=== PATIENT | male | born 1970 | race Caucasian/White ===

== ENCOUNTER 2018-11-30 13:27 | Inpatient (IN) | payer BC ==
[2018-11-30] MEDS ORDERED: HYDROCORTISONE SUC 100 MG INJ ONE (13:47)
[2018-11-30] MEDS ORDERED: NA CHLORIDE 0.9% 1,000 ML ONE ×3 (13:48→15:43)
[2018-11-30] MEDS ORDERED: FAMOTIDINE 20 MG/2 ML VIAL IV ONE (13:48)
[2018-11-30] MEDS ORDERED: ONDANSETRON 4 MG/2 ML VIAL ONE ×2 (13:48→14:20)
[2018-11-30 14:34] LABS: Absolute Lymphocytes (CBC) 3.4 K/uL (0.7-4.9); Basophils % 0.2 % (0-1.3); Hematocrit 44.5 % (39.6-49.0); Lymphocytes % 27.7 % (15.3-44.8); MPV 8.7 fL (7.6-11.3); RBC Red Blood Cell Count 5.08 M/uL (4.33-5.43)
[2018-11-30] MEDS ORDERED: PROMETHAZINE 25 MG/ML VIAL ONE ×2 (14:46→16:42)
[2018-11-30 14:48] LABS: Protime INR 1.31
[2018-11-30 14:54] LABS: ALT/SGPT 27 U/L (12-78); AST/SGOT 21 U/L (15-37); Albumin 3.9 g/dL (3.4-5.0); Alkaline Phosphatase 61 U/L (45-117); BUN Blood Urea Nitrogen 21 mg/dL (7-18); Bicarbonate 22 mmol/L (21-32); Bilirubin Direct 0.3 mg/dL (0-0.2); Bilirubin Total 1.1 mg/dL (0.2-1.0); Glucose Level 132 mg/dL (74-106); Lipase 73 U/L (73-393); Magnesium 2.3 mg/dL (1.8-2.4); NT PRO-BNP 10 pg/mL (<125); Protein, Total 8.2 g/dL (6.4-8.2); Sodium Level 140 mmol/L (136-145); Troponin (Emerg Dept Use Only) < 0.02 ng/mL (0.0-0.045)
[2018-11-30 14:55] LABS: Potassium 2.8 mmol/L (3.5-5.1)
--- NOTE | 2018-11-30 15:06 | ER ---
Nurse's Notes [facility] Name: Raúl Marcos Age: 48 yrs Sex: Male : 1970 Arrival Date: 11/30/2018 Time: 13:31 Bed 5 Private MD: Diagnosis: Vomiting;Weakness;Hypokalemia-HYPOPHOSPHTEMIA;Volume depletion;Abdominal tenderness Presentation: 11/30 13:33 Presenting complaint: Patient states: I have had fever for 2 days. Nausea and vomiting la1 for 24 hours. CLL patient. Transition of care: patient was not received from another setting of care. Onset of symptoms was November 30, 2018. Risk Assessment: Do you want to hurt yourself or someone else? Patient reports no desire to harm self or others. Initial Sepsis Screen: Does the patient meet any 2 criteria? No. Patient's initial sepsis screen is negative. Does the patient have a suspected source of infection? No. Patient's initial sepsis screen is negative. Care prior to arrival: None. 13:33 Method Of Arrival: Wheelchair la1 13:33 Acuity: OPAL 2 la1 Historical: - Allergies: 13:34 No Known Allergies; la1 - PMHx: 13:34 CLL; Hypertension; la1 - Immunization history:: Adult Immunizations up to date. - Social history:: Smoking status: Patient/guardian denies using tobacco. - Ebola Screening: : No symptoms or risks identified at this time. - Family history:: not pertinent. Screenin:00 Abuse screen: Denies threats or abuse. Denies injuries from another. Nutritional hb screening: No deficits noted. Tuberculosis screening: No symptoms or risk factors identified. Fall Risk None identified. Assessment: 14:00 General: Appears uncomfortable, ill, well groomed, well developed, well nourished, sg Behavior is cooperative, appropriate for age. Pain: Denies pain. Neuro: Level of Consciousness is awake, alert, obeys commands, Oriented to person, place, time, Reports weakness. Cardiovascular: Patient's skin is warm and dry. Chest pain is denied. Respiratory: Airway is patent Respiratory effort is even, unlabored, Respiratory pattern is regular, symmetrical. GI: Abdomen is round non-distended. : No signs and/or symptoms were reported regarding the genitourinary system. EENT: No signs and/or symptoms were reported regarding the EENT system. Derm: Skin is intact, is healthy with good turgor, Skin is clammy, diaphoretic, Skin is pale, Skin temperature is cool. Musculoskeletal: Circulation, motion, and sensation intact. Range of motion: intact in all extremities, Swelling absent. 14:48 Reassessment: Pt dry heaving. Dr. Tomas notified, Phenergan administered as ordered. hb Vital Signs: 13:34 BP 161 / 118; Pulse 75; Resp 16; Temp 98.0; Pulse Ox 100% on R/A; Weight 117.93 kg; la1 Height 6 ft. 6 in. (198.12 cm); Pain 5/10; 14:45 BP 157 / 81; Pulse 64; Resp 15; Pulse Ox 99% on R/A; hb 17:27 BP 152 / 80; Pulse 75; Resp 17; Pulse Ox 100% on R/A; sg 13:34 Body Mass Index 30.05 (117.93 kg, 198.12 cm) la1 ED Course: 13:31 Patient arrived in ED. mr 13:33 Triage completed. la1 13:34 Arm band placed on left wrist. la1 13:35 Luis Antonio Tomas MD is Attending Physician. belinda 13:44 Michael Sesay RN is Primary Nurse. sg 13:48 Radiology exam delayed due to lab results not completed at this time. (BUN/Creatinine). mw3 14:00 No provider procedures requiring assistance completed. Patient did not have IV access sg during this emergency room visit. 14:02 XRAY Chest (1 view) In Process Unspecified. EDMS 14:10 Patient has correct armband on for positive identification. Placed in gown. Bed in low hb position. Call light in reach. Side rails up X 1. 15:05 Ree Kenny MD is Hospitalizing Provider. belinda 15:32 CT Head Brain wo Cont In Process Unspecified. EDMS 15:32 CT Aorta for Dissection In Process Unspecified. EDMS 17:26 Awaiting: IV NS BOLUS X3 LITERS to infuse prior to drawing the repeat lactate, then pt sg may go upstairs to room 404. 18:24 Repeat lab(s) drawn. by dc, sent to lab. la1 Administered Medications: Discontinued: NS 0.9% 1000 ml IV at 125 ml/hr continuous 13:50 Drug: NS 0.9% 1000 ml Route: IV; Rate: 1 bolus; Site: left forearm; sg 15:00 Follow up: IV Status: Completed infusion; IV Intake: 1000ml sg 13:50 Drug: Solu-CORTEF 100 mg Route: IVP; Site: left forearm; sg 14:30 Follow up: Response: No adverse reaction sg 13:58 Drug: Pepcid 20 mg Route: IVP; Site: left forearm; sg 14:22 Follow up: Response: No adverse reaction sg 13:58 Drug: NS 0.9% 1000 ml Route: IV; Rate: 125 ml/hr; Site: left forearm; sg 13:58 Drug: Zofran 4 mg Route: IVP; Site: left forearm; sg 14:15 Follow up: Response: No adverse reaction hb 14:49 Follow up: Response: No adverse reaction hb 14:22 Drug: Zofran 4 mg Route: IVP; Site: left forearm; hb 15:00 Follow up: Response: No adverse reaction sg 14:49 Drug: NS 0.9% 1000 ml Route: IV; Rate: 1 bolus; Site: left forearm; hb 16:44 Follow up: Response: No adverse reaction; IV Status: Completed infusion; IV Intake: sg 1000ml 14:49 Drug: Phenergan 12.5 mg Route: IVP; Site: left forearm; hb 15:23 Follow up: Response: No adverse reaction sg 15:10 Drug: Cefepime 2 grams Route: IVPB; Rate: 200 ml/hr; Infused Over: 30 mins; Site: left sg forearm; 15:33 Drug: NS 0.9% with KCl 20 mEq/L 1000 ml Route: IV; Rate: 125 ml/hr; Site: left jugular; hb 15:45 Drug: Potassium Chloride 20 mEq Route: IV; Rate: per protocol; Site: left jugular; hb 18:01 Follow up: IV Status: Completed infusion; IV Intake: 100ml rv 16:43 Drug: NS 0.9% 1000 ml Route: IV; Rate: 1 bolus; Site: right forearm; sg 18:00 Follow up: IV Status: Completed infusion; IV Intake: 1000ml rv 16:43 Drug: Phenergan 12.5 mg Route: IVP; Site: right forearm; sg 18:01 Follow up: Response: Nausea unchanged rv 17:47 Drug: Reglan 10 mg Route: IVP; Site: left forearm; rv 18:00 Drug: Potassium Phosphate 15 mmol Route: IV; Rate: per protocol; Site: left jugular; rv Intake: 15:00 IV: 1000ml; Total: 1000ml. sg 16:44 IV: 1000ml; Total: 2000ml. sg 18:00 IV: 1000ml; Total: 3000ml. rv 18:01 IV: 100ml; Total: 3100ml. rv Outcome: 15:06 Decision to Hospitalize by Provider. belinda 18:32 Patient left the ED. la1 Signatures: Dispatcher [employer] EDMS Michael Sesay RN RN sg Anderson, Corey, MD MD cha Rivera, Mary mr Julian, VIPIN Zapien RN la1 Mary Hilton RN RN hb Willis, Michelle mw3 Armond Perdue RN RN rv
--- NOTE | 2018-11-30 15:07 | EDPHYS ---
Physician Documentation [facility] Name: Raúl Marcos Age: 48 yrs Sex: Male : 1970 Arrival Date: 11/30/2018 Time: 13:31 Bed 5 Private MD: ED Physician Luis Antonio Tomas HPI: 11/30 13:44 This 48 yrs old Male presents to ER via Wheelchair with complaints of belinda Nausea/Vomiting, Weakness. 13:44 The patient presents to the emergency department with nausea, vomiting, that is belinda continuous. Onset: The symptoms/episode began/occurred 3 day(s) ago. Possible causes: unknown. The symptoms are aggravated by nothing. The symptoms are alleviated by nothing. Associated signs and symptoms: The patient has no apparent associated signs or symptoms. Severity of symptoms: At their worst the symptoms were mild moderate in the emergency department the symptoms are unchanged. The patient has not experienced similar symptoms in the past. Historical: - Allergies: 13:34 No Known Allergies; la1 - PMHx: 13:34 CLL; Hypertension; la1 - Immunization history:: Adult Immunizations up to date. - Social history:: Smoking status: Patient/guardian denies using tobacco. - Ebola Screening: : No symptoms or risks identified at this time. - Family history:: not pertinent. ROS: 13:44 Eyes: Negative for injury, pain, redness, and discharge, ENT: Negative for injury, belinda pain, and discharge, Neck: Negative for injury, pain, and swelling, Cardiovascular: Negative for chest pain, palpitations, and edema, Respiratory: Negative for shortness of breath, cough, wheezing, and pleuritic chest pain, Back: Negative for injury and pain, : Negative for injury, bleeding, discharge, and swelling, Neuro: Negative for headache, weakness, numbness, tingling, and seizure, Psych: Negative for depression, anxiety, suicide ideation, homicidal ideation, and hallucinations, Allergy/Immunology: Negative for hives, rash, and allergies, Endocrine: Negative for neck swelling, polydipsia, polyuria, polyphagia, and marked weight changes, Hematologic/Lymphatic: Negative for swollen nodes, abnormal bleeding, and unusual bruising. 13:44 Constitutional: Positive for fever, poor PO intake. 13:44 Abdomen/GI: Positive for abdominal pain, nausea and vomiting. 13:44 Skin: Positive for diaphoresis, pallor, diffusely. Exam: 13:44 Constitutional: This is a well developed, well nourished patient who is awake, alert, belinda and in no acute distress. Head/Face: Normocephalic, atraumatic. Eyes: Pupils equal round and reactive to light, extra-ocular motions intact. Lids and lashes normal. Conjunctiva and sclera are non-icteric and not injected. Cornea within normal limits. Periorbital areas with no swelling, redness, or edema. ENT: Nares patent. No nasal discharge, no septal abnormalities noted. Tympanic membranes are normal and external auditory canals are clear. Oropharynx with no redness, swelling, or masses, exudates, or evidence of obstruction, uvula midline. Mucous membranes moist. Neck: Trachea midline, no thyromegaly or masses palpated, and no cervical lymphadenopathy. Supple, full range of motion without nuchal rigidity, or vertebral point tenderness. No Meningismus. Chest/axilla: Normal chest wall appearance and motion. Nontender with no deformity. No lesions are appreciated. Cardiovascular: Regular rate and rhythm with a normal S1 and S2. No gallops, murmurs, or rubs. Normal PMI, no JVD. No pulse deficits. Respiratory: Lungs have equal breath sounds bilaterally, clear to auscultation and percussion. No rales, rhonchi or wheezes noted. No increased work of breathing, no retractions or nasal flaring. Abdomen/GI: Soft, non-tender, with normal bowel sounds. No distension or tympany. No guarding or rebound. No evidence of tenderness throughout. Back: No spinal tenderness. No costovertebral tenderness. Full range of motion. Male : Normal genitalia with no discharge or lesions. MS/ Extremity: Pulses equal, no cyanosis. Neurovascular intact. Full, normal range of motion. Neuro: Awake and alert, GCS 15, oriented to person, place, time, and situation. Cranial nerves II-XII grossly intact. Motor strength 5/5 in all extremities. Sensory grossly intact. Cerebellar exam normal. Normal gait. Psych: Awake, alert, with orientation to person, place and time. Behavior, mood, and affect are within normal limits. 13:44 Skin: Appearance: Color: pale, Temperature: cool, Moisture: diaphoretic, petechiae, not noted, ecchymosis, not noted, flushing, not noted, diaphoresis is noted, swelling, is not appreciated. Vital Signs: 13:34 BP 161 / 118; Pulse 75; Resp 16; Temp 98.0; Pulse Ox 100% on R/A; Weight 117.93 kg; la1 Height 6 ft. 6 in. (198.12 cm); Pain 5/10; 14:45 BP 157 / 81; Pulse 64; Resp 15; Pulse Ox 99% on R/A; hb 17:27 BP 152 / 80; Pulse 75; Resp 17; Pulse Ox 100% on R/A; sg 13:34 Body Mass Index 30.05 (117.93 kg, 198.12 cm) la1 Procedures: 14:26 Peripheral line: by aseptic technique a peripheral line was placed in the left external belinda jugular vein. MDM: 13:35 Patient medically screened. [facility] 13:47 Data reviewed: vital signs, nurses notes, lab test result(s), EKG, radiologic studies, [facility] CT scan, plain films. 11/30 13:44 Order name: Basic Metabolic Panel; Complete Time: 15:01 [facility] 11/30 13:44 Order name: CBC with Diff; Complete Time: 15:01 [facility] 11/30 13:44 Order name: LFT's; Complete Time: 15:01 [facility] 11/30 13:44 Order name: Magnesium; Complete Time: 15:01 [facility] 11/30 13:44 Order name: NT PRO-BNP; Complete Time: 15:01 [facility] 11/30 13:44 Order name: PT-INR; Complete Time: 15:01 [facility] 11/30 13:44 Order name: Troponin (emerg Dept Use Only); Complete Time: 15:01 [facility] 11/30 13:44 Order name: Lipase; Complete Time: 15:01 [facility] 11/30 13:44 Order name: Blood Culture Adult (2) [facility] 11/30 13:44 Order name: Procalcitonin; Complete Time: 15:04 [facility] 11/30 13:44 Order name: Lactate; Complete Time: 15:01 [facility] 11/30 13:44 Order name: Urine Culture [facility] 11/30 15:02 Order name: Phosphorus; Complete Time: 16:08 [facility] 11/30 15:30 Order name: Urine Drug Screen EDMN 11/30 13:44 Order name: XRAY Chest (1 view); Complete Time: 16:08 [facility] 11/30 13:44 Order name: CT Head Brain wo Cont; Complete Time: 16:08 [facility] 11/30 13:44 Order name: CT Aorta for Dissection; Complete Time: 16:08 [facility] 11/30 18:14 Order name: Lactate 11/30 13:44 Order name: EKG; Complete Time: 13:45 [facility] 11/30 13:44 Order name: Cardiac monitoring; Complete Time: 13:59 [facility] 11/30 13:44 Order name: EKG - Nurse/Tech; Complete Time: 13:59 [facility] 11/30 13:44 Order name: IV Saline Lock; Complete Time: 14:00 [facility] 11/30 13:44 Order name: Labs collected and sent; Complete Time: 14:00 [facility] 11/30 13:44 Order name: O2 Per Protocol; Complete Time: 14:00 [facility] 11/30 13:44 Order name: O2 Sat Monitoring; Complete Time: 14:00 [facility] Administered Medications: Discontinued: NS 0.9% 1000 ml IV at 125 ml/hr continuous 13:50 Drug: NS 0.9% 1000 ml Route: IV; Rate: 1 bolus; Site: left forearm; sg 15:00 Follow up: IV Status: Completed infusion; IV Intake: 1000ml sg 13:50 Drug: Solu-CORTEF 100 mg Route: IVP; Site: left forearm; sg 14:30 Follow up: Response: No adverse reaction sg 13:58 Drug: Pepcid 20 mg Route: IVP; Site: left forearm; sg 14:22 Follow up: Response: No adverse reaction sg 13:58 Drug: NS 0.9% 1000 ml Route: IV; Rate: 125 ml/hr; Site: left forearm; sg 13:58 Drug: Zofran 4 mg Route: IVP; Site: left forearm; sg 14:15 Follow up: Response: No adverse reaction hb 14:49 Follow up: Response: No adverse reaction hb 14:22 Drug: Zofran 4 mg Route: IVP; Site: left forearm; hb 15:00 Follow up: Response: No adverse reaction sg 14:49 Drug: NS 0.9% 1000 ml Route: IV; Rate: 1 bolus; Site: left forearm; hb 16:44 Follow up: Response: No adverse reaction; IV Status: Completed infusion; IV Intake: sg 1000ml 14:49 Drug: Phenergan 12.5 mg Route: IVP; Site: left forearm; hb 15:23 Follow up: Response: No adverse reaction sg 15:10 Drug: Cefepime 2 grams Route: IVPB; Rate: 200 ml/hr; Infused Over: 30 mins; Site: left sg forearm; 15:33 Drug: NS 0.9% with KCl 20 mEq/L 1000 ml Route: IV; Rate: 125 ml/hr; Site: left jugular; hb 15:45 Drug: Potassium Chloride 20 mEq Route: IV; Rate: per protocol; Site: left jugular; hb 18:01 Follow up: IV Status: Completed infusion; IV Intake: 100ml rv 16:43 Drug: NS 0.9% 1000 ml Route: IV; Rate: 1 bolus; Site: right forearm; sg 18:00 Follow up: IV Status: Completed infusion; IV Intake: 1000ml rv 16:43 Drug: Phenergan 12.5 mg Route: IVP; Site: right forearm; sg 18:01 Follow up: Response: Nausea unchanged rv 17:47 Drug: Reglan 10 mg Route: IVP; Site: left forearm; rv 18:00 Drug: Potassium Phosphate 15 mmol Route: IV; Rate: per protocol; Site: left jugular; rv Disposition: 11/30/18 15:06 Hospitalization ordered by Ree Kenny for Inpatient Admission. Preliminary diagnosis are Vomiting, Weakness, Hypokalemia - HYPOPHOSPHTEMIA, Volume depletion, Abdominal tenderness. - Bed requested for Telemetry/MedSurg (Inpatient). - Status is Inpatient Admission. la1 - Condition is Fair. - Problem is new. - Symptoms have improved. UTI on Admission? No Signatures: Dispatcher [employer] EDMN Sameera Diamond RN RN dw Gay, Steven, RN RN Luis Antonio Rich MD MD cha Calderon, Audri RN RN aa5 Curry Jordan RN RN la1 Mary Hilton RN RN Armond Rizzo RN RN rv Corrections: (The following items were deleted from the chart) 16:10 15:06 Hospitalization Ordered by Ree Kenny MD for Inpatient Admission. Preliminary belinda diagnosis is Vomiting; Weakness; Hypokalemia; Volume depletion; Abdominal tenderness. Bed requested for Telemetry/MedSurg (Inpatient). Status is Inpatient Admission. Condition is Fair. Problem is new. Symptoms have improved. UTI on Admission? No. belinda 16:34 16:10 11/30/2018 15:06 Hospitalization Ordered by Ree Kenny MD for Inpatient dw Admission. Preliminary diagnosis is Vomiting; Weakness; Hypokalemia - HYPOPHOSPHTEMIA; Volume depletion; Abdominal tenderness. Bed requested for Telemetry/MedSurg (Inpatient). Status is Inpatient Admission. Condition is Fair. Problem is new. Symptoms have improved. UTI on Admission? No. belinda 18:32 16:34 11/30/2018 15:06 Hospitalization Ordered by Ree Kenny MD for Inpatient la1 Admission. Preliminary diagnosis is Vomiting; Weakness; Hypokalemia - HYPOPHOSPHTEMIA; Volume depletion; Abdominal tenderness. Bed requested for Telemetry/MedSurg (Inpatient). Status is Inpatient Admission. Condition is Fair. Problem is new. Symptoms have improved. UTI on Admission? No. dw
--- NOTE | 2018-11-30 15:42 | RAD REPORT ---
EXAM DESCRIPTION: CT - Head Brain Wo Cont - 11/30/2018 3:31 pm CLINICAL HISTORY: Dizziness COMPARISON: None. TECHNIQUE: Computed axial tomography of the head was obtained. IV contrast was not requested. All CT scans are performed using dose optimization technique as appropriate and may include automated exposure control or mA/KV adjustment according to patient size. FINDINGS: An intracranial bleed is not seen . The ventricles are normal in caliber. No extra-axial fluid collection is noted. Fluid within the sinuses/ mastoids is not seen. IMPRESSION: No acute intracranial abnormality is seen. If patient's symptoms persist MRI of the bra in would be recommended.
[2018-11-30] MEDS ORDERED: KCL 20 MEQ/100 mL IVPB 20 MEQ/100 ML BAG IV ONE (15:43)
[2018-11-30] MEDS ORDERED: NS KCL 20MEQ 1,000 ML IV ONE (15:43)
--- NOTE | 2018-11-30 15:58 | RAD REPORT ---
EXAM DESCRIPTION: CT - Angio Aorta For Dissection - 11/30/2018 3:31 pm CLINICAL HISTORY: . Cough and abdominal pain with vomiting COMPARISON: None TECHNIQUE: Computed tomography angiography of the chest, abdomen pelvis were obtained. 100 cc Isovue 370 was administered intravenously. Coronal and sagittal reconstruction were performed. The evaluati on of bowel limited as oral contrast was not administered MIP 3D reconstruction was performed All CT scans are performed using dose optimization technique as appropriate and may include automated exposure control or mA/KV adjustment according to patient size. FINDINGS: An aortic dissection is not seen. An aortic aneurysm is not displayed. 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 SMA and CATARINA are patent . A lung consolidation is not present. A pericardial effusion is not seen. A pleural effusion is not n oted. Fatty liver Spleen, pancreas adrenals and kidneys demonstrate no significant abnormality. The appendix is normal. There no evidence diverticulitis. No ascites is noted. Small hiatal hernia. Osteophytes and disc bulge L5-S1 abut the left S1 nerve root Small to moderate left inguinal hernia contains fat IMPRESSION: Negative for an aortic dissection.
--- NOTE | 2018-11-30 15:58 | RAD REPORT ---
EXAM DESCRIPTION: Dominick Single View11/30/2018 2:03 pm CLINICAL HISTORY: cough COMPARISON: none FINDINGS: The lungs appear clear of acute infiltrate. The heart is normal size IMPRESSION: No acute abnormalities displayed
[2018-11-30] MEDS ORDERED: POTASSIUM PHOS IN 0.9 % NACL 15 MMOL/250 ML BAG IV ONE (16:45)
--- NOTE | 2018-11-30 17:41 | P.HP ---
Certification for Inpatient Patient admitted to: Inpatient Practitioner: I am a practitioner with admitting privileges, knowledge of patient current condition, hospital course, and medical plan of care. Services: Services provided to patient in accordance with Admission requirements found in Title 42 Section 412.3 of the Code of Federal Regulations Patient History Date of Service: 11/30/18 Reason for admission: Nausea/vomiting History of Present Illness: This is a 48-year-old male with CLL and hypertension admitted for intractable nausea and vomiting that has been progressively worsening for the past 3 days. Per patient, he had fever and body aches then resolved 2 days prior to the nausea and vomiting starting 3 days ago. Describes his vomitus is nonbilious and nonbloody. This nausea and vomiting has been progressively worsening, associated with a burning feeling in his chest and stomach. This morning for appropriate 4 hr symptoms were worse and he was vomiting every 15 min therefore he came to the emergency room. He states that he has not eaten anything in 3-4 days. Reports normal bowel movement, last 1 this morning. Blood pressure was 161/118, heart rate of 75, respirations of 16, afebrile at 98 and satting 100% on room air. His BMI is 30.05. His labs were remarkable for WBC count elevated at 12.2, potassium low at 2.8 and creatinine elevated at 1.43. His lactic acid was elevated at 3, total bili and direct bili also elevated. He was given IV fluids, Solu-Cortef and Zofran along with Pepcid and Phenergan in the ER. After interventions, his blood pressure improved to 157/ 84. Chest x-ray was done, which was negative for any acute abnormalities. Head CT was also done which was negative for any acute abnormalities. A CTA of the chest was negative for any dissection. At the time of my exam, he is alert oriented x3, in mild acute distress and hemodynamically stable. Home medications list reviewed: Yes Review of Systems 10-point ROS is otherwise unremarkable Physical Examination - Physical Exam General: Alert, Oriented x3, Mild distress HEENT: Atraumatic, PERRLA, Mucous membr. moist/pink, EOMI, Sclerae nonicteric Neck: Supple, 2+ carotid pulse no bruit, No LAD, Without JVD or thyroid abnormality Respiratory: Clear to auscultation bilaterally, Normal air movement Cardiovascular: Regular rate/rhythm, Normal S1 S2 Gastrointestinal: Normal bowel sounds, Soft and benign, Non-distended, No tenderness, No masses, No guarding Musculoskeletal: No tenderness Integumentary: No rashes Neurological: Normal gait, Normal speech, Normal strength at 5/5 x4 extr, Normal tone, Normal affect Lymphatics: No axilla or inguinal lymphadenopathy - Studies Laboratory Data (last 24 hrs) 11/30/18 14:25: Phosphorus 1.0 L 11/30/18 14:25: PT 15.3 H, INR 1.31 11/30/18 14:25: WBC 12.2 H, Hgb 14.9, Hct 44.5, Plt Count 172 11/30/18 14:25: Sodium 140, Potassium 2.8 L*, BUN 21 H, Creatinine 1.43 H, Glucose 132 H, Magnesium 2.3, Total Bilirubin 1.1 H, AST 21, ALT 27, Alkaline Phosphatase 61, Lipase 73 Assessment and Plan - Problems (Diagnosis) (1) Hypertensive urgency Current Visit: Yes Status: Acute Plan: Blood pressure now stable. Patient has not been taking his blood pressure medication for the past 3-4 days Will continue to monitor and adjust medications as needed. (2) Intractable nausea and vomiting Current Visit: Yes Status: Acute Plan: Unsure of etiology but this could be secondary to dyspepsia versus gastritis versus ulceration -Zofran/Phenergan as needed for nausea -will include start IV fluids, maintenance dose -trial of Protonix and sucralfate. -patient will need GI follow up as an outpatient. Patient is actually from [place], currently visiting family here in [facility]. Qualifiers: Vomiting type: unspecified Qualified Code(s): R11.2 - Nausea with vomiting , unspecified (3) Hypokalemia Current Visit: Yes Status: Acute Plan: Replaced in the ER. Continue to monitor and replace as needed. (4) Lactic acidosis Current Visit: Yes Status: Acute Plan: Slightly elevated WBC count, no other evidence of infection at this time. -doubt sepsis. This could be secondary to dehydration -will continue IV fluids, recheck lactic acid levels (5) Dehydration Current Visit: Yes Status: Acute Plan: Continue IV fluids, maintenance dose. Continue to monitor (6) JOHANN (acute kidney injury) Current Visit: Yes Status: Acute Plan: Likely pre renal, he -continue IV fluids -avoid nephrotoxic medications, recheck via labs (7) Obesity (BMI 30.0-34.9) Current Visit: No Status: Chronic - Plan DVT prophylaxis: Lovenox GI prophylaxis: None Diet: Clear liquid diet Disposition: Admit to floor with tele, pending symptomatic improvement Discharge Plan: Home Plan to discharge in: 48 Hours - Advance Directives Does patient have a Living Will: No Does patient have a Durable POA for Healthcare: No
[2018-11-30] MEDS ORDERED: METOCLOPRAMIDE 10 MG/2mL INJ ONE (17:42)
[2018-11-30] MEDS ORDERED: PROMETHAZINE 25 MG/ML VIAL IV PRN (18:29)
[2018-11-30] MEDS ORDERED: SODIUM CHLORIDE 0.9% 10ML INJ IV PRN ×2 (18:29→21:53)
[2018-11-30 18:42] VITALS: BMI 29.5
[2018-11-30 18:45] LABS: Barbiturates NEGATIVE (NEGATIVE); Benzodiazepines NEGATIVE (NEGATIVE); Cocaine NEGATIVE (NEGATIVE); METHAMPHETAM NEGATIVE (NEGATIVE); Methadone NEGATIVE (NEGATIVE); Opiates NEGATIVE (NEGATIVE); Phencyclidine NEGATIVE (NEGATIVE); THC Cannibis NEGATIVE (NEGATIVE)
[2018-11-30] MEDS: ONDANSETRON 4 MG/2 ML VIAL IV PRN (19:43)
[2018-11-30] MEDS ORDERED: TEMAZEPAM 15 MG CAP PO PRN (20:24)
[2018-11-30] MEDS: SUCRALFATE 1 GM TABLET PO SCH (21:00)
[2018-11-30] MEDS: METOPROLOL TAR 50 MG TAB PO SCH (21:00)
[2018-11-30] MEDS ORDERED: PANTOPRAZOLE 40 MG INJ IVP ONE (21:53)
[2018-11-30] MEDS: METOPROLOL TARTRATE 5 MG/5 ML INJ IV PRN (22:08)
[2018-12-01 04:49] LABS: Urine Appearance CLEAR; Urine Bilirubin NEGATIVE (NEG); Urine Blood 3+ (NEG); Urine Color YELLOW; Urine Glucose NEGATIVE (NEG); Urine Protein 1+ (NEG); Urine Specific Gravity >=1.030 (1.005-1.030); Urine Urobilinogen 0.2 mg/dL (0.2-1.0); Urine pH 5.5 (5.0-7.0)
[2018-12-01 05:11] LABS: Urine Microscopic Reflex ORDER UMIC
[2018-12-01 05:33] LABS: Urine Bacteria <20 /HPF (NONE SEEN); Urine Culture Reflex Order NOT NEEDED
[2018-12-01] MEDS: METOPROLOL TARTRATE 5 MG/5 ML INJ IV PRN (05:53)
[2018-12-01 06:01] LABS: Absolute Lymphocytes (CBC) 3.6 K/uL (0.7-4.9); Basophils % 0.1 % (0-1.3); Hematocrit 42.3 % (39.6-49.0); MPV 8.8 fL (7.6-11.3)
[2018-12-01 06:17] LABS: Albumin 3.8 g/dL (3.4-5.0); Bilirubin Total 0.6 mg/dL (0.2-1.0); Magnesium 2.4 mg/dL (1.8-2.4); Phosphorus 3.7 mg/dL (2.5-4.9); Potassium 3.5 mmol/L (3.5-5.1); Protein, Total 7.7 g/dL (6.4-8.2)
[2018-12-01] MEDS: ENOXAPARIN 40 MG/0.4 ML SQ SCH (08:05)
[2018-12-01] MEDS: ONDANSETRON 4 MG/2 ML VIAL IV PRN ×2 (08:06→17:01)
[2018-12-01] MEDS: PANTOPRAZOLE 40 MG INJ IVP SCH (08:06)
[2018-12-01] MEDS: SUCRALFATE 1 GM TABLET PO SCH ×4 (08:06→20:19)
--- NOTE | 2018-12-01 08:07 | EKG ---
Test Date: 2018-11-30 Test Time: 13:39:47 English And Reading Instructor: LA MEASUREMENT RESULTS: Intervals: Rate: 73 TN: 140 QRSD: 92 QT: 422 QTc: 464 [place]: P: 52 TN: 140 QRS: 50 T: 22 INTERPRETIVE STATEMENTS: Normal sinus rhythm Possible Left atrial enlargement Borderline ECG No previous ECG available for comparison Electronically Signed On 12-01-18 08:06:53 CDT by Jordan Rios
[2018-12-01] MEDS: METOPROLOL TAR 50 MG TAB PO SCH (09:00)
[2018-12-01] MEDS ORDERED: POTASSIUM CL SA 10 MEQ TAB PO ONE (09:00)
--- NOTE | 2018-12-01 11:21 | P.PN ---
Subjective Date of Service: 12/01/18 Chief Complaint: Nausea/vomiting Patient seen and examined at bedside. Father at bedside. Chart reviewed and case discussed with nursing staff. Discussed case with by telephone Patient reports slight improvement, though continues to have vomiting this morning. He is also complaining of hiccups this morning. He states the sucralfate helping for a little bit. Review of Systems 10-point ROS is otherwise unremarkable Physical Examination - Vital Signs Temperature: 98 F Blood Pressure: 168/102 Pulse: 63 Respirations: 16 Pulse Ox (%): 100 - Physical Exam General: Alert, In no apparent distress, Oriented x3 HEENT: Atraumatic, PERRLA, EOMI Neck: Supple, JVD not distended Respiratory: Clear to auscultation bilaterally, Normal air movement Cardiovascular: Regular rate/rhythm, Normal S1 S2 Gastrointestinal: Normal bowel sounds, No tenderness Musculoskeletal: No tenderness Integumentary: No rashes Neurological: Normal speech, Normal tone, Normal affect Lymphatics: No axilla or inguinal lymphadenopathy - Studies Laboratory Data (last 24 hrs) 11/30/18 14:25: Phosphorus 1.0 L 11/30/18 14:25: PT 15.3 H, INR 1.31 11/30/18 14:25: WBC 12.2 H, Hgb 14.9, Hct 44.5, Plt Count 172 11/30/18 14:25: Sodium 140, Potassium 2.8 L*, BUN 21 H, Creatinine 1.43 H, Glucose 132 H, Magnesium 2.3, Total Bilirubin 1.1 H, AST 21, ALT 27, Alkaline Phosphatase 61, Lipase 73 Microbiology Data (last 24 hrs): 11/30/18 14:19 Blood - Blood Anaerobic Blood Culture - Final Assessment And Plan - Current Problems (Diagnosis) (1) Hypertensive urgency Current Visit: Yes Status: Resolved Plan: Blood pressure now stable. Patient has not been taking his blood pressure medication for the past 3-4 days Will continue to monitor and adjust medications as needed. -restart home valsartan. Will hold hydrochlorothiazide at this time. (2) Intractable nausea and vomiting Current Visit: Yes Status: Acute Plan: Unsure of etiology but this could be secondary to dyspepsia versus gastritis versus ulceration -Zofran as needed for nausea. Will also refer start Reglan as this may help with hiccups as well. -will continue IV fluids, maintenance dose -continue IV Protonix and sucralfate. -patient will need GI follow up as an outpatient. Patient is actually from [place], currently visiting family here in town. Qualifiers: Vomiting type: unspecified Qualified Code(s): R11.2 - Nausea with vomiting , unspecified (3) Hypokalemia Current Visit: Yes Status: Resolved Plan: Resolved. Continue to monitor and replace as needed. (4) Lactic acidosis Current Visit: Yes Status: Acute Plan: Slightly elevated WBC count, no other evidence of infection at this time. -doubt sepsis. This could be secondary to dehydration -will continue IV fluids, recheck lactic acid levels (5) Dehydration Current Visit: Yes Status: Acute Plan: Improved. Continue IV fluids, maintenance dose. Continue to monitor (6) JOHANN (acute kidney injury) Current Visit: Yes Status: Acute Plan: Likely pre renal, improving creatinine -continue IV fluids -avoid nephrotoxic medications, recheck via labs (7) Obesity (BMI 30.0-34.9) Current Visit: No Status: Chronic - Plan DVT prophylaxis: Lovenox GI prophylaxis: None Diet: Clear liquid diet Disposition: Plan is that patient would like to head back to [place] tomorrow morning, so he could follow up with a GI doctor over there. His currently is setting this up for tomorrow. Will continue to monitor overnight, pending symptomatic improvement. Anticipate discharge home in the morning with outpatient GI followup.
[2018-12-01] MEDS ORDERED: SERTRALINE HCL 50 MG TAB PO SCH ×2 (12:00→21:00)
[2018-12-01] MEDS ORDERED: ATORVASTATIN 10 MG TAB PO SCH ×2 (12:00→21:00)
[2018-12-01] MEDS: BUPROPION HCL XL 150 MG TAB PO SCH (12:04)
[2018-12-01] MEDS: METOCLOPRAMIDE 10 MG/2mL INJ IV PRN ×2 (12:04→20:20)
[2018-12-01] MEDS: VALSARTAN 160 MG TAB PO SCH (12:15)
[2018-12-01] MEDS ORDERED: HYDRALAZINE HCL 20 MG/ML VIAL IV ONE (17:40)
[2018-12-02] MEDS ORDERED: HYDRALAZINE HCL 20 MG/ML VIAL IV PRN (00:34)
[2018-12-02 03:24] VITALS: O2SAT 98
[2018-12-02 06:01] LABS: Albumin 3.7 g/dL (3.4-5.0); Potassium 3.1 mmol/L (3.5-5.1); Protein, Total 7.1 g/dL (6.4-8.2)
[2018-12-02 06:04] LABS: Absolute Lymphocytes (CBC) 3.4 K/uL (0.7-4.9); Basophils % 0.1 % (0-1.3); Hematocrit 42.2 % (39.6-49.0); Lymphocytes % 33.9 % (15.3-44.8); MPV 8.7 fL (7.6-11.3); RBC Red Blood Cell Count 4.83 M/uL (4.33-5.43)
[2018-12-02] MEDS ORDERED: POTASSIUM CL SA 10 MEQ TAB PO ONE (06:28)
[2018-12-02] MEDS: BUPROPION HCL XL 150 MG TAB PO SCH (08:39)
[2018-12-02] MEDS: SUCRALFATE 1 GM TABLET PO SCH (08:39)
[2018-12-02] MEDS: VALSARTAN 160 MG TAB PO SCH (08:39)
[2018-12-02] MEDS: ONDANSETRON 4 MG/2 ML VIAL IV PRN (08:39)
[2018-12-02] MEDS: ENOXAPARIN 40 MG/0.4 ML SQ SCH (08:40)
[2018-12-02] MEDS: PANTOPRAZOLE 40 MG INJ IVP SCH (08:40)
[2018-12-02 08:59] VITALS: TEMP 99.3
[2018-12-02 11:44] VITALS: BP 160/80
--- NOTE | 2018-12-02 12:32 | P.DS ---
Admission Date: 11/30/18 Discharge Date: 12/02/18 Primary Care Provider: In [facility] Disposition: ROUTINE DISCHARGE Discharge Condition: GOOD Reason for Admission: Nausea/vomiting - Problems (1) Hypertensive urgency Current Visit: Yes Status: Resolved (2) Intractable nausea and vomiting Current Visit: Yes Status: Acute Qualifiers: Vomiting type: unspecified Qualified Code(s): R11.2 - Nausea with vomiting , unspecified (3) Hypokalemia Current Visit: Yes Status: Resolved (4) Lactic acidosis Current Visit: Yes Status: Acute (5) Dehydration Current Visit: Yes Status: Acute (6) JOHANN (acute kidney injury) Current Visit: Yes Status: Acute (7) Obesity (BMI 30.0-34.9) Current Visit: No Status: Chronic Brief History of Present Illness: This is a 48-year-old male with CLL and hypertension admitted for intractable nausea and vomiting that has been progressively worsening for the past 3 days. Per patient, he had fever and body aches then resolved 2 days prior to the nausea and vomiting starting 3 days ago. Describes his vomitus is nonbilious and nonbloody. This nausea and vomiting has been progressively worsening, associated with a burning feeling in his chest and stomach. This morning for appropriate 4 hr symptoms were worse and he was vomiting every 15 min therefore he came to the emergency room. He states that he has not eaten anything in 3-4 days. Reports normal bowel movement, last 1 this morning. Blood pressure was 161/118, heart rate of 75, respirations of 16, afebrile at 98 and satting 100% on room air. His BMI is 30.05. His labs were remarkable for WBC count elevated at 12.2, potassium low at 2.8 and creatinine elevated at 1.43. His lactic acid was elevated at 3, total bili and direct bili also elevated. He was given IV fluids, Solu-Cortef and Zofran along with Pepcid and Phenergan in the ER. After interventions, his blood pressure improved to 157/ 84. Chest x-ray was done, which was negative for any acute abnormalities. Head CT was also done which was negative for any acute abnormalities. A CTA of the chest was negative for any dissection. At the time of my exam, he is alert oriented x3, in mild acute distress and hemodynamically stable. Hospital Course: Patient was admitted for intractable nausea and vomiting along with dehydration. He was provided symptomatic relieve as well as IV fluids. His labs improved, his symptoms also improved. Patient did continues to complain of worsening burning-like sensation in the stomach along with hiccups. Patient was given Zofran and also rectal and did help with hiccups. Patient stated hiccups continued to have been especially when he took medications orally. He was also started on Protonix through the IV as well as sucralfate. Patient was able to tolerate a clear liquid diet. Options were discussed with patient in regards to GI follow up. Unfortunately, we did not have GI coverage this weekend in our hospital. Patient will really benefit from a EGD and further GI workup for potential H-pylori infection versus gastritis versus ulcer. Patient stated that he is from dialysis in all his positions are not [place]. He was on his way back today, and he would like to get back to [place] and follow up with the GI doctor there. As patient was hemodynamically stable, in no acute distress and clinically doing better, he was discharged in a stable manner with instructions to follow up with a GI doctor. Patient stated that his is currently getting a GI follow up set up as we speak and he will have some the later today or tomorrow for follow up. A prescription for Protonix as well as sucralfate was sent to pharmacy. His blood pressure was elevated on admission, likely because he was not taking his blood pressure medications for the past 3- 4 days. Blood pressures were controlled here with valsartan along with IV medications. He will continue follow up with his primary care physician upon discharge, in [place]. Vital Signs/Physical Exam: Temp Pulse Resp BP Pulse Ox 99.3 F 70 20 160/80 H 100 12/02/18 08:00 12/02/18 08:39 12/02/18 08:00 12/02/18 11:00 12/02/18 08:00 General: Alert, In no apparent distress, Oriented x3 HEENT: Atraumatic, PERRLA, EOMI Neck: Supple, JVD not distended Respiratory: Clear to auscultation bilaterally, Normal air movement Cardiovascular: Regular rate/rhythm, Normal S1 S2 Gastrointestinal: Normal bowel sounds, No tenderness Musculoskeletal: No tenderness Integumentary: No rashes Neurological: Normal speech, Normal tone, Normal affect Lymphatics: No axilla or inguinal lymphadenopathy Laboratory Data at Discharge: WBC 10.2 K/uL (4.3-10.9) 12/02/18 05:05 Hgb 14.5 g/dL (13.6-17.9) 12/02/18 05:05 Hct 42.2 % (39.6-49.0) 12/02/18 05:05 Plt Count 178 K/uL (152-406) 12/02/18 05:05 PT 15.3 SECONDS (9.5-12.5) H 11/30/18 14:25 INR 1.31 11/30/18 14:25 Sodium 136 mmol/L (136-145) 12/02/18 05:05 Potassium 3.1 mmol/L (3.5-5.1) L 12/02/18 05:05 BUN 17 mg/dL (7-18) 12/02/18 05:05 Creatinine 1.25 mg/dL (0.55-1.3) 12/02/18 05:05 Glucose 120 mg/dL (74-106) H 12/02/18 05:05 Phosphorus 3.7 mg/dL (2.5-4.9) D 12/01/18 05:38 Magnesium 2.4 mg/dL (1.8-2.4) 12/01/18 05:38 Total Bilirubin 1.0 mg/dL (0.2-1.0) 12/02/18 05:05 AST 17 U/L (15-37) 12/02/18 05:05 ALT 23 U/L (12-78) 12/02/18 05:05 Alkaline Phosphatase 53 U/L (45-117) 12/02/18 05:05 Lipase 73 U/L (73-393) 11/30/18 14:25 Home Medications: Atorvastatin Calcium 1 tab PO DAILY 11/30/18 Bupropion HCl [Bupropion Xl] 1 tab PO DAILY 11/30/18 Sertraline [Zoloft*] 1 tab PO DAILY 11/30/18 Valsartan/Hydrochlorothiazide [Valsartan-Hctz 160-12.5 mg Tab] 1 tab PO DAILY Pantoprazole Sodium [Protonix] 20 mg PO DAILY #30 tablet. 12/02/18 Sucralfate [Carafate*] 1 gm PO QID #30 tab 12/02/18 New Medications: Pantoprazole Sodium [Protonix] 20 mg PO DAILY #30 tablet. Sucralfate [Carafate*] 1 gm PO QID #30 tab Patient Discharge Instructions: Please follow up with a GI doctor for further follow up and possible EGD to help furhter manage your symptoms. Please return to the ER for worsening symptoms. Diet: As tolerated Activity: Ad malik Time spent managing pt's care (in minutes): 55
== END 2018-12-02 11:15 | disposition home or self-care (01) | DRG 392 ==
LOC: ER 13:27 → ERHOLD 15:35 → 4TH 18:24
PROVIDERS: ADMIT Family Medicine; ATTEND Family Medicine
DX: R11.2 Nausea with vomiting, unspecified (principal); E87.2 Acidosis; N17.9 Acute kidney failure, unspecified; C91.10 Chronic lymphocytic leukemia of B-cell type not having achieved remission; I16.0 Hypertensive urgency; I10 Essential (primary) hypertension; E86.0 Dehydration; R06.6 Hiccough; E87.6 Hypokalemia; E66.9 Obesity, unspecified; Z68.29 Body mass index [BMI] 29.0-29.9, adult
CPT/HCPCS: 36415; 70450; 71045; 71275; 74175; 80048; 80053; 80076; 80307; 81003; 81015; 83605; 83690; 83735; 83880; 84100; 84132; 84145; 84484; 85025; 85610; 87040; 87086; 87088; 93005; 94760; 96361; 96365; 96366; 96375; 99283; C9113; J0360; J1650; J1720; J2405; J2550; J2765; J7030; Q9967